=== PATIENT | female | born 1995 | race African-American/Black ===

== ENCOUNTER 2021-09-05 18:50 | Inpatient (IN) | payer MEDICAID ==
[~2021-09-05] VITALS: Ht 162.6 cm; Wt 65.8 kg
[2021-09-05] MEDS: NACL 0.9% 1,000 ML IV SCH (01:40)
[2021-09-05 18:54] VITALS: BP 108/80
--- NOTE | 2021-09-05 19:05 | NUR ---
PATIENT IS HERE FOR CLOGGED RIGGINS.
--- NOTE | 2021-09-05 19:05 | NUR ---
PT IN ROOM 1
--- NOTE | 2021-09-05 19:19 | NUR ---
REPORT RECEIVED FROM ROXANA ALLEN. CONTINUITY OF PT CARE AT THIS TIME.
[2021-09-05 19:24] LABS: HEMATOCRIT 28.9 % (36-48); MEAN CORPUSCULAR HEMOGLOBIN 24 pg (27-31); MEAN CORPUSCULAR HGB CONC 31 g/dL (33-37); MEAN CORPUSCULAR VOLUME 75.6 fL (80-94); PLATELET COUNT (AUTO) 898 K/uL (140-450); RED BLOOD CELL COUNT(AUTO) 3.82 MIL/uL (4.20-5.40); RED CELL DISTRIBUTION WIDTH 21.3 % (11.6-13.7); WHITE BLOOD COUNT (AUTO) 19.5 K/uL (4.8-10.8)
[2021-09-05] MEDS ORDERED: NACL 0.9% 1,000 ML IV ONE ×2 (19:30→21:50)
--- NOTE | 2021-09-05 19:33 | NUR ---
25 YO/F BIBA FROM [facility] FOR INSERTTION OF A RIGGINS CATH. PT PRESENTS NON-VERBAL, AOX0, GCS 9. TRACH TO VENT SETTINGS OF FiO2 24, vt 400, RATE 14, PEEP 5. PT IS TACHYCARDIC IN 140s OTHER VS W/IN NORMAL LIMITS. PT HAS GTUBE PATENT. PT IN GOWN AND CONNECTED TO MONITOR. ERMD AWARE OF PT STATUS. PMH: BRAIN INJURY, TRACH TO VENT, CARDIOMYOPATHY (SEE CHART) ALLERGIES: PENICILLINS, PEANUTS
[2021-09-05 19:53] LABS: ALBUMIN 2.4 g/dL (3.4-5.0); ANION GAP 10.5 (8-16); CARBON DIOXIDE 29.9 mmol/L (21-32); CREATININE 0.5 mg/dL (0.6-1.3); POTASSIUM 3.4 mmol/L (3.5-5.1); TOTAL BILIRUBIN 0.3 mg/dL (0.0-1.0)
[2021-09-05 19:55] LABS: EOSINOPHILS % (MANUAL) 1 % (0-4); LYMPHOCYTES % (MANUAL) 10 % (20-46); MONOCYTES % (MANUAL) 2 % (5-12)
--- NOTE | 2021-09-05 20:13 | NUR ---
# 16 FR Riggins catheter with 10 ml utilizing sterile technique. Immediate return of 2 ml PINK/RED THICK urine noted. Bedside drainage bag placed below level of bladder. UNABLE TO COLLECT SAMPLE AT THIS TIME. Pt tolerated procedure WELL. ASSISTED BY MARY JANE REDMAN. DEE AWARE OF PT RIGGINS INSERTION AND OUTPUT.
[2021-09-05] MEDS ORDERED: cefTRIAXone 1,000 MG VIAL ONE (20:31)
--- NOTE | 2021-09-05 20:36 | NUR ---
AIDA COLLECTED FROM PT NARES AND SENT TO LAB.
--- NOTE | 2021-09-05 20:40 | NUR ---
PER PT CHART PT ALLERGIC TO PENICILLINS AND PEANUTS ERMD AWARE. PER ERMD TO GO AHEAD AND ADMIN ROCEPHIN AND MONITOR FOR ADVERSE REACTIONS.
--- NOTE | 2021-09-05 21:01 | NUR ---
PER ERMD, RIGGINS IRRIGATION NOT NEEDED AT AN IMMEDIATE TIME.
[2021-09-05 22:05] VITALS: BP 114/73
--- NOTE | 2021-09-05 22:07 | NUR ---
1855 PLACED PATIENT ON VENT. PATIENT IS TRACH TO VENT SIZE PORTEX 7. FACILITY STATED SHE WAS ON PRVC MODE RR14 VT 400 PEEP 5 AND 28%. PLACED PATIENT ON THOSE VENT SETTINGS
[2021-09-05] MEDS ORDERED: ACETAMINOPHEN 325 MG TAB PO PRN (23:30)
[2021-09-05] MEDS ORDERED: guaiFENesin DM 200/20 MG-10 ML 10 ML UDC PO PRN (23:30)
[2021-09-05] MEDS ORDERED: ONDANSETRON 4 MG/2 ML VIAL IM/IVP PRN (23:30)
[2021-09-05] MEDS ORDERED: POTASSIUM CHLORIDE 10 MEQ TABER PO PRN (23:30)
[2021-09-05] MEDS ORDERED: DOCUSATE SODIUM 100 MG GELCAP PO PRN (23:30)
[2021-09-05] MEDS ORDERED: ZOLPIDEM 5 MG TAB PO PRN (23:30)
--- NOTE | 2021-09-05 23:48 | NUR ---
PT HR IMPROVED AT THIS TIME TO 120s. OTHER VS W/IN NORMAL LIMITS. NO URINE OUT PUT YET.
[2021-09-06 00:05] LABS: CHOL/HDL RATIO 2.2 (1-4.5); FREE T4 (FREE THYROXINE) 1.31 ng/dL (0.76-1.46); PHOSPHORUS 4.5 mg/dL (2.5-4.9); THYROID STIMULATING HORMONE 3.19 uIU/mL (0.34-3.74)
[2021-09-06 00:06] LABS: PROTHROMBIN TIME 11.3 secs (10.8-13.4)
--- NOTE | 2021-09-06 00:09 | NUR ---
WOUND PHTOTOS ATTATCHED TO CHART.
--- NOTE | 2021-09-06 00:44 | NUR ---
SACRAL WOUND CULTURE TAKEN AND SENT TO LAB.
--- NOTE | 2021-09-06 00:47 | NUR ---
Patient will be admitted to care of DR. JORDAN. Admited to TELE. Will go to room 120B. Belongings list completed. Report to MARY JANE RODRIGUEZ.
--- NOTE | 2021-09-06 01:23 | NUR ---
0110 TRANSFERED PT TO ROOM 120B ON VENT. PLACED PT BACK ON SAME SETTINGS. SEE RT NOTES
--- NOTE | 2021-09-06 01:40 | NUR ---
PATIENT ARRIVED AT THE UNIT 0100, STARTED IVF
[2021-09-06 06:23] LABS: ANION GAP 11.2 (8-16); CREATININE 0.3 mg/dL (0.6-1.3); POTASSIUM 3.2 mmol/L (3.5-5.1)
[2021-09-06 06:30] LABS: BASOPHILS % (AUTO) 0.3 % (0.0-2.0); EOSINOPHILS # (AUTO) 0.2 K/uL (0-0.4); EOSINOPHILS % (AUTO) 1.3 % (0.0-4.0); HEMOGLOBIN 7.9 g/dL (12.0-16.0); LYMPHOCYTES # (AUTO) 1.4 K/uL (2.5-16.5); LYMPHOCYTES % (AUTO) 9.8 % (20.5-51.1); MEAN CORPUSCULAR HEMOGLOBIN 24 pg (27-31); MEAN CORPUSCULAR HGB CONC 31 g/dL (33-37); MEAN CORPUSCULAR VOLUME 76.7 fL (80-94); MONOCYTES # (AUTO) 0.8 K/uL (0.8-1.0); MONOCYTES % (AUTO) 6.1 % (1.7-9.3); NEUTROPHILS # (AUTO) 11.4 K/uL (1.8-7.7); NEUTROPHILS % (AUTO) 82.5 % (42.2-75.2); PLATELET COUNT (AUTO) 705 K/uL (140-450); RED BLOOD CELL COUNT(AUTO) 3.26 MIL/uL (4.20-5.40); WHITE BLOOD COUNT (AUTO) 13.8 K/uL (4.8-10.8)
--- NOTE | 2021-09-06 07:00 | NUR ---
PT ON ACVC 500, RR10, +5, 28%. ALARMS SET AND AUDIBLE, VENT PLUGGED INTO RED OUTLET, WHEELS ARE LOCKED AND AMBU BAG AT BEDSIDE. PT IN NO DISTRESS, RESTING COMFORTABLY.
--- NOTE | 2021-09-06 07:25 | NUR ---
RECEIVED REPORT FROM SAFETY AND SECURITY MANAGER NURSE FOR CONTINUITY OF CARE. PT AWAKE IN BED, NON VERBAL. BREATHING SYMMETRICAL, ON TRACH TO VENT WITH SETTINGS FIO2 28 VT 500 PEEP 5 RATE 10. PT WITH GT, NO RUNNING FEEDING AT THIS TIME. RIGHT HAND 20G WITH NS AT 100CC/HR. ALSO NOTED WITH RIGGINS CATHETER, PER NOC SHIFT NURSE REPORT NO OUTPUT NOTED ON RIGGINS CATHETER DUE TO URINE LEAKED ON DIAPER. F/C WAS PLACED 09/05/21 AT ER. PT ALSO WITH COCCYX PRESSURE ULCER AND RIGHT BUTTOCK WOUND. FLACC O. ALL SAFETY MEASURES IN PLACE.
[2021-09-06 08:00] VITALS: BP 115/68
[2021-09-06] MEDS ORDERED: PANTOPRAZOLE 40 MG TABEC PO SCH (09:00)
[2021-09-06] MEDS: NACL 0.9% 1,000 ML IV SCH ×2 (09:30→19:30)
--- NOTE | 2021-09-06 09:33 | NUR ---
LEFT MESSAGE TO DR JORDAN REGARDING PROTONIX TAB MEDICATION NON CRUSHABLE, IF WE CAN CHANGE TO IVP. AWAITING RESPONSE.
--- NOTE | 2021-09-06 10:27 | NUR ---
PATIENT HAS BEEN SCREENED AND CATEGORIZED HIGH NUTRITION RISK. PATIENT WILL BE SEEN WITHIN 1-2 DAYS OF ADMISSION. SEDRICK [address]ARAY RD
[2021-09-06 12:00] VITALS: BP 103/72
--- NOTE | 2021-09-06 13:01 | NUR ---
FOLLOWED UP REGARDING PROTONIX TAB, NON CRUSHABLE. PT HAS GT, UNABLE TO SWALLOW. CHANGED PROTONIX TO IVP PER MD.
--- NOTE | 2021-09-06 14:11 | NUR ---
MADE AWARE THAT PT RECEIVES FIBERSOURCE FEEDING AT [facility], ORDERED TO CONTINUE. HOSPITAL DOESN'T CARRY FIBERSOURCE FEEDING, DR JORDAN MADE AWARE RD TO COME UP WITH FORMULA. SPOKE WITH SEDRICK DRAFTER GEOPHYSICAL AND MADE AWARE.
--- NOTE | 2021-09-06 14:34 | NUR ---
09/06/21 RD INITIAL ASSESSMENT COMPLETED PLEASE REFER TO NUTRITION ASSESSMENT UNDER CARE ACTIVITY FOR ESTIMATED NUTRITIONAL NEEDS. 1. RECOMMENDED JEVITY 1.2 WITH A GOAL RATE OF 50 ML/HR -FWF: 200 ML Q6H OR PER MD -START AT 20 ML/HR AND INCREASE BY 20 ML Q4H TOLERATED 2. RECOMMEND MIREYA BID PER RD PROTOCOL -WITH MRIEYA BID, PT WILL RECEIVE ~100% OF ESTIMATED NUTRITIONAL NEEDS 3. RD TO FOLLOW-UP 2-3 DAYS, HIGH RISK SEDRICK GARAY RD
--- NOTE | 2021-09-06 15:00 | NUR ---
NOTED RIGGINS CATHETER NO OUTPUT, LEAKING TO THE PAD. DR JORDAN MADE AWARE, CONSULT WITH DR KHAN. DR KHAN MADE AWARE, STATED TO CHANGE CATHETER OR IRRIGATE.
[2021-09-06 16:00] VITALS: BP 97/49
--- NOTE | 2021-09-06 16:17 | NUR ---
STARTED PT ON JEVITY 1.2 AT 20CC/HR, TO INCREASE FEEDING BY 20CC Q4HRS UNTIL GOAL IS REACHED (50CC) WILL MONITOR.
--- NOTE | 2021-09-06 17:20 | NUR ---
RIGGINS CATHETER CHANGED IT WAS STILL LEAKING, NOTED MINIMAL URINE OUTPUT ON THE DRAINAGE BAG. PT WAS JUST CHANGED PRIOR TO RIGGINS CATHETER RE-INSERTION. WILL CONTINUE TO MONITOR.
--- NOTE | 2021-09-06 18:10 | NUR ---
URINE SPECIMEN COLLECTED AND SENT TO LAB. RIGGINS CATHETER INTACT AND PATENT DRAINING CLOUDY YELLOW URINE, NO LEAK NOTED AT THIS TIME. FLACC O.
--- NOTE | 2021-09-06 19:30 | NUR ---
ENDORSED PT TO MANAGER VIDEO NURSE FOR CONTINUITY OF CARE, NO CHANGE IN PT'S CONDITION
[2021-09-06 20:00] VITALS: BP 108/60
[2021-09-06 21:59] LABS: BARBITURATE, URINE NEGATIVE ng/ml (NEG <=200); BENZODIAZEPINE, URINE NEGATIVE ng/mL (NEG <=200); CANNABINOID, URINE NEGATIVE ng/mL (NEG <=50); COCAINE, URINE NEGATIVE ng/mL (NEG <=300); OPIATE, URINE NEGATIVE ng/mL (NEG <=2000); PHENCYCLIDINE SCREEN,URINE NEGATIVE ng/mL (NEG <=25)
[2021-09-07] VITALS: BP 107/61
[2021-09-07 02:28] LABS: APPEARANCE,URINE CLEAR (CLEAR); BILIRUBIN,URINE NEGATIVE (NEGATIVE); BLOOD, URINE TRACE-L (NEGATIVE); COLOR,URINE YELLOW (YELLOW); LEUKOCYTE ESTERASE ,URINE NEGATIVE (NEGATIVE); NITRITE, URINE NEGATIVE (NEGATIVE); UGLUCOSE NEGATIVE (NEGATIVE)
[2021-09-07 02:38] LABS: RBC,URINE 0-5 /HPF (0-5); WBC,URINE 0-5 /HPF (0-5)
[2021-09-07] MEDS ORDERED: MEROPENEM 1,000 MG VIAL IV ONE (04:00)
--- NOTE | 2021-09-07 04:00 | NUR ---
PATIENT IS AWAKE. PATIENT BODY TEMP ELEVATED OF 99.8. COOLING MEASURES APPLIED. BODY TEMP WENT DOWN TO 98.9.
[2021-09-07] MEDS: MEROPENEM 1,000 MG in NACL 0.9% 50 ML IV SCH ×3 (04:23→21:00)
--- NOTE | 2021-09-07 05:00 | NUR ---
BODY TEMP 98.6
[2021-09-07] MEDS: NACL 0.9% 1,000 ML IV SCH ×2 (05:30→13:47)
[2021-09-07 06:46] LABS: BASOPHILS % (AUTO) 0.1 % (0.0-2.0); EOSINOPHILS # (AUTO) 0.2 K/uL (0-0.4); EOSINOPHILS % (AUTO) 1.6 % (0.0-4.0); HEMATOCRIT 23.1 % (36-48); HEMOGLOBIN 7.3 g/dL (12.0-16.0); LYMPHOCYTES # (AUTO) 1.1 K/uL (2.5-16.5); LYMPHOCYTES % (AUTO) 8.3 % (20.5-51.1); MEAN CORPUSCULAR HEMOGLOBIN 24 pg (27-31); MEAN CORPUSCULAR HGB CONC 32 g/dL (33-37); MEAN CORPUSCULAR VOLUME 76.7 fL (80-94); MONOCYTES # (AUTO) 1.2 K/uL (0.8-1.0); NEUTROPHILS # (AUTO) 11.2 K/uL (1.8-7.7); PLATELET COUNT (AUTO) 649 K/uL (140-450); RED BLOOD CELL COUNT(AUTO) 3.01 MIL/uL (4.20-5.40); WHITE BLOOD COUNT (AUTO) 13.9 K/uL (4.8-10.8)
[2021-09-07 06:48] LABS: ANION GAP 11.2 (8-16); CARBON DIOXIDE 25.5 mmol/L (21-32); CREATININE 0.4 mg/dL (0.6-1.3); POTASSIUM 3.7 mmol/L (3.5-5.1)
--- NOTE | 2021-09-07 07:24 | NUR ---
PATIENT IS ON STABLE CONDITION. RIGGINS CATH, IV LINE AND TRACHEOSTOMY VENT ARE INTACT AND PATENT. ENDORSED TO DAY SHIFT NURSE FOR CONTINUITY OF PATIENT CARE.
--- NOTE | 2021-09-07 07:25 | NUR ---
RECEIVED REPORT FROM NIGHTSHIFT NURSE FOR CONTINUITY OF CARE. PLAN OF CARE DISCUSSED. PT IN STABLE CONDITION, CURRENTLY SLEEPING BUT EASILY AROUSED TO SOUND. PT APHASIC, EYES DID NOT TRACK, WITH TRACHE TO VENT. PT BEDBOUND, WITH RIGGINS CATHETER IN PLACE, PATENT TO GRAVITY. G-TUBE RUNNING FEEDING AT 50ML/HR. SKIN CLEAN, DRY, WITH PRESSURE INJURIES ON SACRUM AND RIGHT BUTTOCKS. NO SIGNS OF DISTRESS NOTED. WILL CONTINUE TO MONITOR.
[2021-09-07 08:00] VITALS: BP 99/64
--- NOTE | 2021-09-07 08:00 | NUR ---
RECEIVED PT ON AC/VC 500,RR10,+5,28%. WHEELS LOCKED AND VENT IN PLUGGED INTO RED OUTLET, AMBU BAG AT BEDSIDE. PT WAS RESTING COMFORTABLY
[2021-09-07 08:08] LABS: T4 (THYROXINE) 8.7 ug/dL (4.5-12.0)
[2021-09-07] MEDS: PANTOPRAZOLE 40 MG INJ VIAL IVP SCH (08:39)
--- NOTE | 2021-09-07 09:00 | NUR ---
PT VISUALLY ASSESSED. ORAL CARE PERFORMED, PT TOLERATED WELL. NO RESIDUAL NOTED, G-TUBE PATENT AND FEEDING WAS RESUMED. PT IN STABLE CONDITION, CONTINUOUS PULSE OX READS AT 100%.
--- NOTE | 2021-09-07 11:19 | NUR ---
DC PLANNING: THE PATIENT ADMITTED FROM [facility] WITH AN INITIAL C/O A MALFUNCTIONING RIGGINS CATHETER.. SHE WAS NOTED TO BE IN ST TO THE 140'S, WBC'S 19.5. THE PATIENT HAS PRIOR HOSPITAL ADMISSIONS FOR PERSISTENT SINUS TACH. THE PATIENT IS TRACH TO VENT WITH PEG. ORDERS FOR CONSULTS WITH UROLOGY AND CARDIOLOGY, STARTED ON MEREM AND IVF'S. PATIENT FC WAS REPLACED AND IS DRAINING WITHOUT PROBLEMS. AL SPOKE WITH THE PATIENTS MOTHER BRIEFLY BY PHONE, THE PATIENT HAS BEEN AT [facility] FOR ABOUT A WEEK AND WAS AT [facility] FOR TWO MONTHS. THE MOTHER THEN ENDED THE CALL AND ASKED IF SHE COULD CALL BACK. CM ALSO LEFT A MESSAGE FOR THE PAVER INSTALLER LISTED ON THE PATIENTS FACE SHEET. AL SPOKE WITH NALINI AT [facility], THE PATIENT WAS TRANSFERRED FROM THE [facility] THEY COULDN'T MANAGE HER NEEDS SPECIFICALLY HER WOUND CARE OF MULTIPLE DECUBES. THE PATIENT IS NOT INTERACTIVE AND IS TOTAL CARE. DECISIONS ARE MADE JOINTLY BY THE MOTHER AND [facility]. [facility] WILL ACCEPT HER BACK WHEN SHE IS CLINICALLY STABLE, CM WILL FOLLOW. Addendum: 09/09/21 at 1407 by Augusta Morales CM DC PLANNING: CLINICAL PACKET FAXED TO [facility] INCLUDING WOUND CULTURE RESULTS. PATIENT ACCEPTED TO ROOM 125A, DR PAZ TO FOLLOW. TRANSPORT SET UP WITH [facility] ON WILL CALL, CM WILL FOLLOW. Addendum: 09/12/21 at 1045 by Augusta Morales CM DC PLANNING: PATIENT TO DC BACK TO [facility] TODAY, [facility] TRANSPORT ARRANGED WITH [facility], 1530 LAST [facility]WYER TIME. CM WILL FOLLOW. Addendum: 09/12/21 at 1118 by Augusta Morales CM DC PLANNING: TRANSPORT TIME CHANGED TO 1400 BY CATHERINE. AL WILL FOLLOW. Addendum: 09/12/21 at 1148 by Augusta Morales CM DC PLANNING: CM SPOKE WITH THE PATIENTS MOTHER HUMAIRA BY PHONE, LET HER KNOW THAT THE PATIENT IS RETURNING TO [facility] TODAY. CM WILL FOLLOW.
--- NOTE | 2021-09-07 11:40 | NUR ---
PT VISUALLY ASSESSED AND IN STABLE CONDITION. BED BATH AND LINEN CHANGED PERFORMED BY WAFFLE MACHINE OPERATOR WITH RN AT BEDSIDE. TRACH WAS SUCTIONED AND FEEDING WAS RESUMED ONCE PT WAS CLEANED. PT TOLERATED WELL.
[2021-09-07 12:00] VITALS: BP 109/67
--- NOTE | 2021-09-07 13:04 | NUR ---
BOBBY, WOUND CARE NURSE AT THE BEDSIDE EVALUATING PT. WOUNDS CLEANED AND CHANGED WITH RN. PT IS STABLE.
--- NOTE | 2021-09-07 13:15 | NUR ---
WOUND CARE EVALUATION NOTE: SKIN ASSESSMENT DONE WITH PRIMARY RN ON THIS 25 Y/O ADMITTED WITH INITIAL DX OF F/C DYSFUNCTION. PAST MEDICAL HISTORY OF CARDIOMYOPATHY, ANOXIC BRAIN INJURY, TRACH DEPENDENT, G-TUBE DEPENDENT. ALL ABOVE INFORMATION OBTAIN FROM ADMISSION H&P. PT. ADMITTED WITH PRESSURE INJURIES STAGE 3 TO RIGHT SCAPULAR, LEFT BUTTOCK. 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 PT. SKIN THIN FRAGILE AND EASILY TO TORN. INCONTINENT OF BOWEL, F/C PATENT MODERATE AMOUNT YELLOW URINE OBSERVED, BED BATH PROVIDED, ALL WOUND DRESSING CHANGED, POSITION PT. WITH OFFLOADING AND PT. IS ON KENDRA ISOFLEX ALIZA MATTRESS. POC DISCUSSED WITH PRIMARY RN. DR. JORDAN NOTIFIED POC DISCUSSED POSSIBLE WOUND VAC TX TO SACRALCOCCYX.PENDING ORDER. -TRACH PEROSTOMY SKIN TO RIGHT CHIN, RIGHT NECK HEALED SCAR TISSUE ALHAJI WOUND SKIN INTACT. -PEG ALHAJI-OSTOMY SKIN DRY AND INTACT -MOISTURE ASSOCIATE DERMATITIS GROINS, PERINEUM AND ALHAJI-ANAL, SKIN MOIST, INTACT -SACRALCOCCYX PRESSURE INJURY STAGE 4, MUSCLE OBSERVED WITH 7X10X2 CM UNDERMINING 6 O'CLOCK TO 12 O'CLOCK DIRECTION WITH DEEPEST TO 12 O'CLOCK 5CM, WOUND BED WITH 100% RED GRANULATION TISSUE, MODERATE AMOUNT SEROSANGUINEOUS DRAINAGE, NO ODOR, ALHAJI-WOUND SKIN NON-BLANCHABLE REDNESS MOIST SKIN -LEFT MEDIAL FOOT PRESSURE INJURY UN-STAGEABLE 1X1CM, 100% DRY STABLE BLACK NECROTIC TISSUE -RIGHT MEDIAL FOOT PRESSURE INJURY UN-STAGEABLE 1X1.5CM, 100% DRY STABLE BLACK NECROTIC TISSUE -PRESSURE INJURY STAGE 3 TO RIGHT SCAPULAR SUPERFICIAL DEPTH 19X4CM AREA, MULTIPLE SEGMENTS SUPERFICIAL WOUNDS, WOUND BEDS ARE PINK AND MOIST, NO ODOR, ALHAJI-WOUND SKIN THIN DRY AND EASILY TO TORN RECOMMENDATIONS: -PROTECT RIGHT CHIN AND RIGHT NECK FRESH SCARS WITH FOAM DRESSING QD AND PRN IF SOILING, OFFLOADING NEAK AREA -CLEANSE LEFT BUTTOCK AND RIGHT SCAPULAR WOUNDS WITH NS, PAT DRY, APPLY XEROFORM DRESSING AND COVER WITH FOAM DRESSING QD AND PRN IF SOILING -PAINT LEFT AND RIGHT MEDIAL FEET WITH BETADINE SOLUTION BID AND JOYCELYN, HEEL RAISERS TO BILATERAL HEELS -APPLY HYDRGUARD TO TRUNK OF BODY AND TO GROINS AND ALHAJI-ANAL BID AND JOYCELYN -CLEANSE SACRALCOCCYX WITH WOUND CARE SOLUTION, APPLY THERAHONEY GEL TO WOUND BED, PACK WOUND WITH ONE PIECE KERLIX ROLL, FANFOLD, COVER WITH DRY DRESSING AND SECURE WITH TAPE QD AND PRN IF SOILING, OFFLOAD AREA -POSITIONING: TURN AND REPOSITION PATIENT Q 2H OR SOONER USE PILLOWS TO KEEP BONY PROMINENCES FROM DIRECT CONTACT WITH SURFACES USE REPOSITIONING WEDGES TO PROVIDE 30-DEGREE ANGLE FOR SIDE LYING POSITIONS OFFLOADING OR FOAM DRESSING TO ALL TUBING TO PREVENT MEDICAL DEVICES RELATED PRESSURE INJURY -RE-EVALUATING AND MANAGING INCONTINENCE MONITOR SKIN CONDITION DURING POSITION CHANGE DO NOT MASSAGE REDNESS, BONY PROMINENCES FREQUENT ALHAJI-CARE AND PROVIDE BARRIER CREAMS PRN IF SOILING MOISTURE CONTROL BY OFFER BED LI/URINAL /ABSORBENT PAD TO WICK AND HOLD MOISTURE KEEP SKIN DRY AND PROTECT FROM FRICTION -MANAGE FRICTION/SHEAR/MOBILITY KEEP HOB AT THE LOWEST LEVEL OF ELEVATION NO MORE THAN 30-DEGREE UNLESS OTHERWISE CONTRAINDICATED USE LIFT SHEET OR TRANSFER DEVICE TO MOVE PATIENT AND PREVENT LATERAL SHEER. PROTECT HEELS, ELBOWS BONY PROMINENCES WITH SKIN BERRIES OR FOAM DRESSING IF EXPOSED TO FRICTION OFFLOAD BILATERAL HEELS BY PLACING PILLOWS UNDER CALVES AT ALL TIMES, UNLESS OTHERWISE CONTRAINDICATED -PRESSURE REDISTRIBUTION SURFACE THERAPY KENDRA ISOFLEX ALIZA MATTRESS -NUTRITION: PLEASE FOLLOW RD RECOMMENDATIONS AND OFFER NUTRITION SUPPLEMENTS IF ORDERED.
--- NOTE | 2021-09-07 15:00 | NUR ---
PT VISUALLY ASSESSED, AND IN STABLE CONDITION. NO DISCOMFORT OR DISTRESS NOTED AT THIS TIME. WILL CONTINUE TO MONITOR.
[2021-09-07 16:00] VITALS: BP 133/70
--- NOTE | 2021-09-07 17:00 | NUR ---
PT VISUALLY ASSESSED, AND IN STABLE CONDITION. RT REPORTED THICK SPUTUM WAS SUCTIONED FROM TRACH. PT'S NEW G-TUBE BOTTLE RUNNING WELL WITH NO RESIDUAL NOTED. NO DISTRESS NOTED, WILL CONTINUE TO MONITOR.
[2021-09-07] MEDS: HYDROcodone/APAP 7.5/325 MG 1 TAB PO PRN (18:51)
--- NOTE | 2021-09-07 18:56 | NUR ---
PT WAS GIVEN NORCO FOR PAIN. FLACC SCALE 6/10. PT GRINDING TEETH AND SQUINTING EYES. APHASIC. WILL CONTINUE TO MONITOR.
--- NOTE | 2021-09-07 19:40 | NUR ---
ENDORSED PT TO AIRCRAFT ARMAMENT MECHANIC NURSE FOR CONTINUITY OF CARE. PT IS STABLE. PLAN OF CARE DISCUSSED.
[2021-09-07 20:00] VITALS: BP 126/80
[2021-09-08] VITALS: BP 129/80
--- NOTE | 2021-09-08 00:55 | NUR ---
PATIENT IS AWAKE BUT APHASIC NO TRACKING HAS TRACH TO VENT RATE 10, TV 500 FI02 28 %, PEEP 5. [id number] LUNGS DIMINISH TEMP 98.9 SINUS TACH ON MONITOR HAS G-TUBE JEVTY INFUSING AT 45 HOUR NO RESIDUAL AT 2000, AT 0000 10CC RESIDUAL. HAS WATER FLUSH EVERY SIX HOURS 200CC. HAS F/C DRAINING YELLOW URINE. NO DISTRESS NOTED.
[2021-09-08] MEDS: HYDRAGUARD CREAM TP SCH ×2 (01:00→12:41)
[2021-09-08] MEDS: GAUZE TP SCH ×2 (01:00→12:41)
[2021-09-08] MEDS: NACL 0.9% 1,000 ML IV SCH ×3 (03:28→10:59)
[2021-09-08 04:00] VITALS: BP 120/80
[2021-09-08] MEDS: MEROPENEM 1,000 MG in NACL 0.9% 50 ML IV SCH ×3 (04:52→21:00)
[2021-09-08 07:26] LABS: BASOPHILS % (AUTO) 0.2 % (0.0-2.0); EOSINOPHILS # (AUTO) 0.3 K/uL (0-0.4); EOSINOPHILS % (AUTO) 2.6 % (0.0-4.0); HEMATOCRIT 22.7 % (36-48); HEMOGLOBIN 7.1 g/dL (12.0-16.0); LYMPHOCYTES # (AUTO) 1.1 K/uL (2.5-16.5); LYMPHOCYTES % (AUTO) 9.7 % (20.5-51.1); MEAN CORPUSCULAR HEMOGLOBIN 24 pg (27-31); MEAN CORPUSCULAR HGB CONC 31 g/dL (33-37); MEAN CORPUSCULAR VOLUME 76.1 fL (80-94); MONOCYTES # (AUTO) 1.1 K/uL (0.8-1.0); MONOCYTES % (AUTO) 9.8 % (1.7-9.3); NEUTROPHILS # (AUTO) 8.7 K/uL (1.8-7.7); NEUTROPHILS % (AUTO) 77.7 % (42.2-75.2); PLATELET COUNT (AUTO) 587 K/uL (140-450); RED BLOOD CELL COUNT(AUTO) 2.98 MIL/uL (4.20-5.40); RED CELL DISTRIBUTION WIDTH 20.3 % (11.6-13.7); WHITE BLOOD COUNT (AUTO) 11.2 K/uL (4.8-10.8)
[2021-09-08 07:28] LABS: ANION GAP 9.7 (8-16); CARBON DIOXIDE 27.6 mmol/L (21-32); CREATININE 0.4 mg/dL (0.6-1.3); POTASSIUM 3.3 mmol/L (3.5-5.1)
--- NOTE | 2021-09-08 07:40 | NUR ---
RECEIVED REPORT FROM NIGHTSHIFT NURSE FOR CONTINUITY OF CARE. DISCUSSED PLAN OF CARE. PT IN STABLE CONDITION, AWAKE AND TRACKING WITH EYES. PT APHASIC, TRACH TO VENT WITH O2 SAT WNL. SKIN IS CLEAN, DRY, DRESSINGS ON WOUNDS (SACRAL, SHOULDER, BUTTOCKS) ARE CLEAN AND INTACT. RIGGINS PATENT AND HUNG BY GRAVITY. NO SIGNS OF DISTRESS OR DISCOMFORT NOTED AT THIS TIME. WILL CONTINUE TO MONITOR.
[2021-09-08 08:00] VITALS: BP 130/63
[2021-09-08] MEDS: PANTOPRAZOLE 40 MG INJ VIAL IVP SCH (08:26)
[2021-09-08] MEDS: HYDROcodone/APAP 7.5/325 MG 1 TAB PO PRN ×2 (08:27→18:39)
--- NOTE | 2021-09-08 08:27 | NUR ---
PT WAS GIVEN NORCO FOR PAIN. PT IS GRINDING TEETH AND GRIMACING. PT APPEARS TO BE IN PAIN. ST ON THE MONITOR. WILL CONTINUE TO MONITOR.
--- NOTE | 2021-09-08 10:30 | NUR ---
PT IS STABLE. NO DISTRESS NOTED ON TRACH TO VENT. PT WAS REPOSITIONED. G TUBE IS IN PLACE INFUSING FEEDING. IV IS PATENT AND INTACT. WILL CONTINUE TO MONITOR.
--- NOTE | 2021-09-08 11:00 | NUR ---
DC PLANNING PATIENT IS A 25 YR OLD FEMALE ADMITTED TO [facility] ON 09/05 FOR C/O MALFUNCTIONING RIGGINS CATHETER. MATEO OUTREACHED TO [facility] TO GATHER COLLATERAL INFORMATION. MATEO SPOKE WITH [facility] ADMIN, JOHN. JOHN REPORTED PATIENT HAS BEEN IN THEIR CARE SINCE 08/25/21. PATIENT IS BED BOUND AND IS FULL ASSIST. JOHN REPORTS THAT PATIENT RECEIVES RT. JOHN REPORTS THAT MOM IS ACTIVELY INVOLVED IN CARE AND WORKS CLOSELY WITH PATIENTS REGIONAL WORKER, ROSIO COBIAN TO MAKE DECISIONS FOR CLIENT. DC PLAN IS FOR PATIENT TO RETURN TO [facility] ONCE MEDICALLY STABLE.
[2021-09-08 12:00] VITALS: BP 126/98
--- NOTE | 2021-09-08 12:04 | NUR ---
INFORMED DR. BINGHAM ABOUT PT'S LOW POTASSIUM LEVEL OF 3.3. RECEIVED VERBAL ORDER TO CHANGE PRN 40 MEQ POTASSIUM TO LIQUID SUSPENSION.
[2021-09-08] MEDS: POTASSIUM CHLORIDE 20% 40 MEQ/15 ML UDC GT PRN (12:39)
--- NOTE | 2021-09-08 12:39 | NUR ---
PRN POTASSIUM 40 MEQ GIVEN FOR SERUM POTASSIUM LEVEL OF 3.3. PT IS STABLE AT THIS TIME.
[2021-09-08] MEDS: FOAM DRESSING TP SCH (12:41)
[2021-09-08] MEDS: NON ADHERENT DRESSING TP SCH (12:42)
[2021-09-08] MEDS: THERAHONEY GEL 42.5 GM TP SCH (12:42)
--- NOTE | 2021-09-08 14:40 | NUR ---
09/08/21 RD FOLLOW UP COMPLETED PLEASE REFER TO NUTRITION ASSESSMENT UNDER CARE ACTIVITY FOR ESTIMATED NUTRITIONAL NEEDS. 1. CONTINUE JEVITY 1.2 @ 50 ML/HR TOLERATED -FWF: 200 ML Q6H OR PER MD 2. CONTINUE MIREYA BID PER RD PROTOCOL -WITH MIREYA BID, PT WILL RECEIVE ~100% OF ESTIMATED NUTRITIONAL NEEDS 3. RD TO FOLLOW-UP 2-3 DAYS, HIGH RISK SEDRICK GARAY RD
--- NOTE | 2021-09-08 15:00 | NUR ---
PT IS STABLE. BREATHING IS UNLABORED ON TRACH TO VENT. G TUBE RESIDUAL IS LESS THAN 5 ML. PT TOLERATING WELL. IV IS INFUSING FLUIDS ORDERED. RIGGINS IS PATENT AND INTACT. WILL MONITOR.
[2021-09-08 16:00] VITALS: BP 116/66
--- NOTE | 2021-09-08 18:39 | NUR ---
PT APPEARS TO BE IN PAIN. GRINDING TEETH AND GRIMACING. PT WAS GIVEN NORCO. HR IS 134. WILL CONTINUE TO MONITOR.
--- NOTE | 2021-09-08 19:35 | NUR ---
ENDORSED PT TO SUPERVISOR PAINT NURSE FOR CONTINUITY OF CARE. PT IS STABLE. PLAN OF CARE DISCUSSED.
[2021-09-08 20:00] VITALS: BP 115/74
[2021-09-08] MEDS: METOPROLOL 25 MG TAB PO SCH (21:00)
[2021-09-09] VITALS: BP 117/72
[2021-09-09] MEDS: GAUZE TP SCH ×2 (01:00→13:25)
[2021-09-09] MEDS: HYDRAGUARD CREAM TP SCH ×3 (01:00→21:40)
--- NOTE | 2021-09-09 02:17 | NUR ---
PATIENT NOT ALERT HAS ANOXIC BRAIN INJURY. PATIENT SINUS ON MONITOR 130 HEART RATE. HAS TRACH TO VENT RATE 10, FI02 28%, TV 500, PEEP 5 SAT 100% LUNGS DIMINISH SINUS TACH ON MONITOR. HAS NS INFUSING AT 100 HOUR. JEVITY AT 50 HOUR. NO RESIDUAL AT 2000, AT 000O RESIDUAL 5 CC TEMP 98.2 NO DISTRESS NOTED. PATIENT HAS WOUNDS ON SHOULDERS, BUTTOCKS, AND SACRUM. NO DISTRESS NOTED.
[2021-09-09 04:00] VITALS: BP 118/74
[2021-09-09] MEDS: MEROPENEM 1,000 MG in NACL 0.9% 50 ML IV SCH ×3 (05:00→21:39)
[2021-09-09 06:13] LABS: BASOPHILS % (AUTO) 0.2 % (0.0-2.0); EOSINOPHILS # (AUTO) 0.4 K/uL (0-0.4); EOSINOPHILS % (AUTO) 2.5 % (0.0-4.0); HEMATOCRIT 22.5 % (36-48); HEMOGLOBIN 7.2 g/dL (12.0-16.0); LYMPHOCYTES # (AUTO) 1.7 K/uL (2.5-16.5); MEAN CORPUSCULAR HEMOGLOBIN 25 pg (27-31); MEAN CORPUSCULAR HGB CONC 32 g/dL (33-37); MEAN CORPUSCULAR VOLUME 76.9 fL (80-94); MONOCYTES # (AUTO) 1.4 K/uL (0.8-1.0); MONOCYTES % (AUTO) 8.4 % (1.7-9.3); NEUTROPHILS # (AUTO) 13.5 K/uL (1.8-7.7); NEUTROPHILS % (AUTO) 78.9 % (42.2-75.2); PLATELET COUNT (AUTO) 587 K/uL (140-450); RED BLOOD CELL COUNT(AUTO) 2.93 MIL/uL (4.20-5.40); RED CELL DISTRIBUTION WIDTH 20.7 % (11.6-13.7); WHITE BLOOD COUNT (AUTO) 17.1 K/uL (4.8-10.8)
[2021-09-09 07:01] LABS: ANION GAP 10.5 (8-16); CREATININE 0.4 mg/dL (0.6-1.3); POTASSIUM 3.5 mmol/L (3.5-5.1)
--- NOTE | 2021-09-09 07:35 | NUR ---
RECEIVED REPORT FROM OPERATOR COMMAND SUPPORT SYSTEMS NURSE FOR CONTINUITY OF CARE. PT APHASIC, AWAKE, NON VERBAL. BREATHING SYMMETRICAL ON TRACH TO VENT WITH SETTINGS FIO2 28, PEEP 5, VT 500 RATE 10. FLACC O. PT SINUS TACHYCARDIAC PER REPORT. FLACC O. RIGHT HAND 20G WITH NS AT 100CC/HR. RIGGINS CATHETER INTACT AND PATENT DRAINING YELLOW URINE. GTF OF JEVITY 1.2 AT 50CC/HR WITH WATER FLUSHES OF 200CC Q6HRS. ALL SAFETY MEASURES IN PLACE.
[2021-09-09 08:00] VITALS: BP 112/66
[2021-09-09] MEDS: PANTOPRAZOLE 40 MG INJ VIAL IVP SCH (09:40)
[2021-09-09] MEDS: METOPROLOL 25 MG TAB PO SCH ×2 (09:43→21:40)
--- NOTE | 2021-09-09 09:51 | NUR ---
AM medications given as ordered.
[2021-09-09 12:00] VITALS: BP 93/58
[2021-09-09] MEDS: NACL 0.9% 1,000 ML IV SCH (12:41)
--- NOTE | 2021-09-09 13:20 | NUR ---
PT AWAKE, APHASIC. ON TRACH TO VENT. FLACC O. WOUND DRESSINGS DONE AND CHANGED.
[2021-09-09] MEDS: FOAM DRESSING TP SCH (13:25)
[2021-09-09] MEDS: NON ADHERENT DRESSING TP SCH (13:25)
[2021-09-09] MEDS: THERAHONEY GEL 42.5 GM TP SCH (13:26)
[2021-09-09 16:00] VITALS: BP 114/70
--- NOTE | 2021-09-09 17:15 | NUR ---
PT IN BED. ON TRACH TO VENT. FLACC O. RIGGINS CATHETER INTACT AND PATENT. FREQUENT ROUNDS DONE.
--- NOTE | 2021-09-09 19:35 | NUR ---
ENDORSED PT TO POLE SHAVER HELPER NURSE FOR CONTINUITY OF CARE. NO CHANGE IN CONDITION
[2021-09-09 20:00] VITALS: BP 116/76
[2021-09-10] VITALS: BP 105/57
[2021-09-10] MEDS: GAUZE TP SCH ×2 (01:00→12:16)
[2021-09-10] MEDS: NACL 0.9% 1,000 ML IV SCH ×4 (03:30→23:30)
[2021-09-10 04:00] VITALS: BP 134/76
[2021-09-10] MEDS: MEROPENEM 1,000 MG in NACL 0.9% 50 ML IV SCH ×3 (05:05→22:20)
[2021-09-10 06:25] LABS: HEMATOCRIT 25.4 % (36-48); HEMOGLOBIN 7.8 g/dL (12.0-16.0); MEAN CORPUSCULAR HEMOGLOBIN 23 pg (27-31); MEAN CORPUSCULAR HGB CONC 31 g/dL (33-37); MEAN CORPUSCULAR VOLUME 76.2 fL (80-94); PLATELET COUNT (AUTO) 650 K/uL (140-450); RED BLOOD CELL COUNT(AUTO) 3.33 MIL/uL (4.20-5.40); RED CELL DISTRIBUTION WIDTH 20.8 % (11.6-13.7); WHITE BLOOD COUNT (AUTO) 15.1 K/uL (4.8-10.8)
[2021-09-10 06:48] LABS: ANION GAP 8.6 (8-16); CARBON DIOXIDE 31.5 mmol/L (21-32); CREATININE 0.4 mg/dL (0.6-1.3); POTASSIUM 3.1 mmol/L (3.5-5.1)
--- NOTE | 2021-09-10 07:35 | NUR ---
RECEIVED PATIENT FROM WORKERS COMPENSATION CLAIMS ANALYST NURSE FOR CONTINUITY OF CARE. PT IS STABLE. NO DISTRESS NOTED. IV INTACT AND PATENT INFUSING FLUIDS ORDERED. SKIN IS WARM, DRY, AND NON-INTACT. HAS REINFORCED DRESSING ON SACRAL AND ON RIGHT SHOULDER. C/D/I. RIGGINS CATH IN PLACE. DRAINING YELLOW URINE BY GRAVITY. FLACC 0. PLAN OF CARE DISCUSSED. SAFETY PRECAUTIONS IN PLACE. CALL LIGHT WITHIN REACH. WILL CONTINUE TO MONITOR.
--- NOTE | 2021-09-10 07:55 | NUR ---
pt residual was less than 20mL X4 checks tolerated feeding. Wounds cleaned and dressed. Chavez care was done during shift, no kinks draining clear yellow urine endorsed continuum of care to oncoming nurse
[2021-09-10 08:00] VITALS: BP 107/70
[2021-09-10] MEDS: PANTOPRAZOLE 40 MG INJ VIAL IVP SCH (08:58)
[2021-09-10] MEDS: METOPROLOL 25 MG TAB PO SCH ×2 (08:59→22:21)
--- NOTE | 2021-09-10 09:10 | NUR ---
ALL SCHEDULED MEDS GIVEN. PT IS STABLE. NO DISTRESS NOTED. WILL CONTINUE TO MONITOR.
[2021-09-10] MEDS ORDERED: MORPHINE SULFATE 2 MG/ML SYR IVP PRN (09:40)
[2021-09-10 11:01] LABS: BASOPHILS % (AUTO) 0.5 % (0.0-2.0); EOSINOPHILS % (AUTO) 1.9 % (0.0-4.0); LYMPHOCYTES % (AUTO) 9.9 % (20.5-51.1); MONOCYTES % (AUTO) 8.4 % (1.7-9.3); NEUTROPHILS % (AUTO) 79.3 % (42.2-75.2)
[2021-09-10 11:02] LABS: BASOPHILS # (AUTO) 0.1 K/uL (0.00-0.22); EOSINOPHILS # (AUTO) 0.3 K/uL (0-0.4); LYMPHOCYTES # (AUTO) 1.5 K/uL (2.5-16.5); MONOCYTES # (AUTO) 1.3 K/uL (0.8-1.0)
[2021-09-10 11:04] LABS: LYMPHOCYTES % (MANUAL) 10 % (20-46); MONOCYTES % (MANUAL) 8 % (5-12)
[2021-09-10 11:10] LABS: PLATELET COUNT,MANUAL 650 K/uL (150-450)
[2021-09-10 12:00] VITALS: BP 102/71
[2021-09-10] MEDS: NON ADHERENT DRESSING TP SCH (12:15)
[2021-09-10] MEDS: POTASSIUM CHLORIDE 20% 40 MEQ/15 ML UDC GT PRN (12:15)
[2021-09-10] MEDS: THERAHONEY GEL 42.5 GM TP SCH (12:16)
[2021-09-10] MEDS: HYDRAGUARD CREAM TP SCH (12:16)
[2021-09-10] MEDS: FOAM DRESSING TP SCH (12:17)
--- NOTE | 2021-09-10 12:20 | NUR ---
ALL SCHEDULED MEDS GIVEN. PT IS STABLE. NO DISTRESS NOTED. WILL CONTINUE TO MONITOR.
--- NOTE | 2021-09-10 13:30 | NUR ---
CHANGED PATIENT WOUND DRESSING. KEPT CLEAN AND DRY. PT IS STABLE. WILL CONTINUE TO MONITOR.
[2021-09-10 16:00] VITALS: BP 129/82
--- NOTE | 2021-09-10 16:45 | NUR ---
CHECKED ON PATIENT. PT IS STABLE. NO DISTRESS NOTED. WILL CONTINUE TO MONITOR.
--- NOTE | 2021-09-10 19:35 | NUR ---
ENDORSED TO GOLF CLUB FACER NURSE FOR CONTINUITY OF CARE. PT IS STABLE.
[2021-09-10 20:00] VITALS: BP 102/64
[2021-09-11] VITALS: BP 116/72
[2021-09-11] MEDS: HYDRAGUARD CREAM TP SCH ×2 (01:00→13:57)
[2021-09-11] MEDS: GAUZE TP SCH ×2 (01:00→13:57)
[2021-09-11 04:00] VITALS: BP 96/67
[2021-09-11] MEDS: MEROPENEM 1,000 MG in NACL 0.9% 50 ML IV SCH ×2 (05:11→12:22)
[2021-09-11 05:52] LABS: ANION GAP 8.8 (8-16); BASOPHILS # (AUTO) 0.1 K/uL (0.00-0.22); BASOPHILS % (AUTO) 0.7 % (0.0-2.0); CARBON DIOXIDE 29.7 mmol/L (21-32); CREATININE 0.4 mg/dL (0.6-1.3); EOSINOPHILS # (AUTO) 0.4 K/uL (0-0.4); EOSINOPHILS % (AUTO) 3.4 % (0.0-4.0); HEMATOCRIT 22.6 % (36-48); HEMOGLOBIN 7.2 g/dL (12.0-16.0); LYMPHOCYTES # (AUTO) 1.8 K/uL (2.5-16.5); MEAN CORPUSCULAR HEMOGLOBIN 24 pg (27-31); MEAN CORPUSCULAR HGB CONC 32 g/dL (33-37); MEAN CORPUSCULAR VOLUME 75.3 fL (80-94); MONOCYTES # (AUTO) 1.3 K/uL (0.8-1.0); NEUTROPHILS # (AUTO) 7.3 K/uL (1.8-7.7); NEUTROPHILS % (AUTO) 67.2 % (42.2-75.2); PLATELET COUNT (AUTO) 719 K/uL (140-450); POTASSIUM 3.5 mmol/L (3.5-5.1); RED CELL DISTRIBUTION WIDTH 20.8 % (11.6-13.7); WHITE BLOOD COUNT (AUTO) 10.9 K/uL (4.8-10.8)
--- NOTE | 2021-09-11 07:00 | NUR ---
RECEIVED PT ON ACVC 500, RR10, +5, 24%. WHEELS LOCKED, VENT PLUGGED INTO RED OUTLET AND AMBUBAG AT BEDSIDE. PT RESTING COMFORTABLY, NO DISTRESS NOTED.
[2021-09-11 07:12] LABS: LYMPHOCYTES % (AUTO) 16.9 % (20.5-51.1); MONOCYTES % (AUTO) 11.8 % (1.7-9.3)
--- NOTE | 2021-09-11 07:30 | NUR ---
RECEIVED REPORT FROM MANUFACTURERS SERVICE REPRESENTATIVE NURSE FOR CONTINUITY OF CARE. PT IS AWAKE IN BED, APHASIC. ON TRACH TO VENT WITH SETTINGS FIO2 24, PEEP 5, VT 500, RATE 10. FLACC O. GT INTACT AND PATENT WITH GTF OF JEVITY 1.2 AT 50CC/HR WITH 200CC Q6HRS WATER FLUSHES. RIGGINS CATHETER INTACT AND PATENT DRAINING YELLOW URINE. RIGHT HAND 20G WITH NS AT 100CC/HR. ALL SAFETY MEASURES IN PLACE.
[2021-09-11 08:00] VITALS: BP 112/74
[2021-09-11] MEDS: PANTOPRAZOLE 40 MG INJ VIAL IVP SCH (09:00)
[2021-09-11] MEDS: METOPROLOL 25 MG TAB PO SCH ×3 (09:02→21:00)
--- NOTE | 2021-09-11 09:22 | NUR ---
AM medications admin as ordered. Grady given via G-Tube, for wound healing as ordered.
--- NOTE | 2021-09-11 09:42 | NUR ---
DR BINGHAM MADE AWARE OF HEMOGLOBIN 7.2 AND PLATELET 719, NO ORDERS AT THIS TIME
[2021-09-11 12:00] VITALS: BP 111/73
[2021-09-11] MEDS: NACL 0.9% 1,000 ML IV SCH ×2 (12:21→19:30)
--- NOTE | 2021-09-11 12:44 | NUR ---
WOUND CARE AND DRESSINGS CHANGED ORDERED. TURNED AND REPOSITIONED PTJasmin DOUGLAS O.
[2021-09-11] MEDS: NON ADHERENT DRESSING TP SCH (13:57)
[2021-09-11] MEDS: FOAM DRESSING TP SCH (13:57)
[2021-09-11] MEDS: THERAHONEY GEL 42.5 GM TP SCH (13:58)
[2021-09-11] MEDS ORDERED: TOBRAMYCIN PER PHARMACY MC PRN (16:00)
--- NOTE | 2021-09-11 16:02 | NUR ---
DR WANG (ID) MADE AWARE OF SPUTUM CULTURE RESULT WITH P. AERUGINOSA WITH RESISTANCE TO MEROPENEM. PT CURRENTLY ON MEROPENEM. WITH ORDER TO D/C MEROPENEM AND START ON TOBRAMYCIN PER PHARMACY. ORDER ACKNOWLEDGED
--- NOTE | 2021-09-11 16:52 | NUR ---
09/11/21 RD FOLLOW UP COMPLETED. PLEASE REFER TO NUTRITION ASSESSMENT UNDER CARE ACTIVITY FOR ESTIMATED NUTRITIONAL NEEDS. 1. CONTINUE JEVITY 1.2 @ 50 ML/HR TOLERATED -FWF: 200 ML Q6H OR PER MD 2. CONTINUE MIREYA BID PER RD PROTOCOL -WITH MIREYA BID, PT WILL RECEIVE ~100% OF ESTIMATED NUTRITIONAL NEEDS 3. RD TO FOLLOW-UP 2-3 DAYS, HIGH RISK JUAN BARRIOS RD
[2021-09-11] MEDS: metroNIDAZOLE 500 MG TAB GT SCH (17:29)
[2021-09-11 17:57] VITALS: BP 99/69
--- NOTE | 2021-09-11 19:08 | NUR ---
NOTED PT'S HEART RATE 131-133, LEFT MESSAGE TO DR GODINEZ (KEYBOARD ACTION ASSEMBLER)
[2021-09-11] MEDS ORDERED: METOPROLOL 25 MG TAB GT ONE (19:10)
--- NOTE | 2021-09-11 19:11 | NUR ---
RECEIVED ORDER FROM DR GODINEZ, ORDER ACKNOWLEDGED
--- NOTE | 2021-09-11 19:15 | NUR ---
ENDORSED PT TO FINISH MILL OPERATOR NURSE FOR CONTINUITY OF CARE.
--- NOTE | 2021-09-11 19:16 | NUR ---
RECEIVED REPORT FROM DAY SHIFT NURSE FOR CONTINUITY OF PT CARE.
[2021-09-11 20:00] VITALS: BP_SYST 108; BP_SYST 98; BP_DIAS 55; BP_DIAS 69
--- NOTE | 2021-09-11 20:50 | NUR ---
PATIENT IS WITH B/P-98/55, HR-133. SPOKE TO PEÑA GR MD STATED TO HOLD LOPRESSOR 12,5 MG ORDER AND TO MONITORING PATIENT'S CONDITION, IF B/P CONTINUE TO DROP, SEND PATIENT TO ICU.
[2021-09-12] VITALS: BP 108/69
[2021-09-12] MEDS: HYDRAGUARD CREAM TP SCH ×2 (01:00→13:52)
[2021-09-12] MEDS: GAUZE TP SCH ×2 (01:00→13:52)
[2021-09-12 04:00] VITALS: BP 98/67
[2021-09-12] MEDS: NACL 0.9% 1,000 ML IV SCH (05:30)
[2021-09-12 06:22] LABS: BASOPHILS % (AUTO) 0.4 % (0.0-2.0); EOSINOPHILS # (AUTO) 0.4 K/uL (0-0.4); EOSINOPHILS % (AUTO) 3.7 % (0.0-4.0); HEMOGLOBIN 8.2 g/dL (12.0-16.0); LYMPHOCYTES # (AUTO) 2.3 K/uL (2.5-16.5); LYMPHOCYTES % (AUTO) 21.5 % (20.5-51.1); MEAN CORPUSCULAR HEMOGLOBIN 24 pg (27-31); MEAN CORPUSCULAR HGB CONC 32 g/dL (33-37); MEAN CORPUSCULAR VOLUME 75.1 fL (80-94); MONOCYTES # (AUTO) 1.4 K/uL (0.8-1.0); NEUTROPHILS # (AUTO) 6.6 K/uL (1.8-7.7); NEUTROPHILS % (AUTO) 61.4 % (42.2-75.2); PLATELET COUNT (AUTO) 743 K/uL (140-450); RED BLOOD CELL COUNT(AUTO) 3.46 MIL/uL (4.20-5.40); RED CELL DISTRIBUTION WIDTH 20.9 % (11.6-13.7); WHITE BLOOD COUNT (AUTO) 10.7 K/uL (4.8-10.8)
[2021-09-12 06:44] LABS: ANION GAP 10.5 (8-16); CARBON DIOXIDE 29.1 mmol/L (21-32); CREATININE 0.4 mg/dL (0.6-1.3); POTASSIUM 3.6 mmol/L (3.5-5.1)
--- NOTE | 2021-09-12 06:45 | NUR ---
PATIENT IS ON STABLE CONDITION, NO FACIAL GRIMACING.
--- NOTE | 2021-09-12 07:00 | NUR ---
RECEIVED PT ON ACVC 500, 10, 5, 24%. WHEELS ARE LOCKED AND VENT IS PLUGGED INTO RED OUTLET. AMBU BAG AT BEDSIDE. ALARMS ARE SET AND AUDIBLE.
--- NOTE | 2021-09-12 07:15 | NUR ---
ENDORSED TO DAY SHIFT NURSE FOR CONTINUITY OF PATIENT CARE.
--- NOTE | 2021-09-12 07:15 | NUR ---
RECEIVED REPORT FROM BUSINESS ANALYST [employer] NURSE FOR CONTINUITY OF CARE. PT AWAKE IN BED, APHASIC. ON TRACH TO VENT WITH SETTINGS FIO2 24, PEEP 5, VT 500 RATE 10 BREATHING SYMMETRICAL. FLACC O. GT INTACT AND PATENT WITH JEVITY 1.2 AT 50CC/HR WITH H2O FLUSHES Q6 AT 200CC. RIGGINS CATHETER INTACT AND PATENT DRAINING YELLOW URINE. PER REPORT PT HAS SLIGHT ELEVATION OF TEMP 99.8, LATEST TEMP WAS 99.0. RIGHT HAND 20G WITH NS AT 100CC/HR. ALL SAFETY MEASURES IN PLACE.
[2021-09-12 08:00] VITALS: BP 105/76
[2021-09-12] MEDS ORDERED: DEXTROSE 5% IV SCH (09:00)
[2021-09-12] MEDS ORDERED: TOBRAMYCIN IV SCH (09:00)
[2021-09-12] MEDS: PANTOPRAZOLE 40 MG INJ VIAL IVP SCH (09:09)
[2021-09-12] MEDS: metroNIDAZOLE 500 MG TAB GT SCH ×2 (09:09→12:28)
[2021-09-12] MEDS: METOPROLOL 25 MG TAB PO SCH (09:10)
[2021-09-12] MEDS ORDERED: TOBRAMYCIN IV (09:20)
[2021-09-12] MEDS ORDERED: METR-520 GT (09:20)
--- NOTE | 2021-09-12 09:20 | NUR ---
SCHEDULED AM MEDICATIONS GIVEN ORDERED.
--- NOTE | 2021-09-12 10:15 | NUR ---
[facility]
[2021-09-12 12:00] VITALS: BP 109/68
--- NOTE | 2021-09-12 12:45 | NUR ---
CALLED [facility] AND GAVE REPORT TO MARY JANE HANSEN
[2021-09-12] MEDS: FOAM DRESSING TP SCH (13:52)
[2021-09-12] MEDS: THERAHONEY GEL 42.5 GM TP SCH (13:52)
[2021-09-12] MEDS: NON ADHERENT DRESSING TP SCH (13:52)
--- NOTE | 2021-09-12 14:02 | NUR ---
PT PICKED UP BY [facility] VIA [facility], DISCHARGED TO [facility] WITH BELONGINGS AND PAPERWORKS. PT ON TRACH TO VENT. IV LINE WAS KEPT PT WILL RECEIVE IV ANTIBIOTIC AT [facility].
== END 2021-09-12 14:00 | DRG 720 ==
LOC: MED 18:50 → MTU 22:01
PROVIDERS: ADMIT Family Medicine; ATTEND Family Medicine
PROC: 5A1955Z Respiratory Ventilation, Greater than 96 Consecutive Hours (ICD-10-PCS; principal; 2021-09-06)
DX: A41.9 Sepsis, unspecified organism (principal); G82.50 Quadriplegia, unspecified; G93.41 Metabolic encephalopathy; J18.9 Pneumonia, unspecified organism; E43 Unspecified severe protein-calorie malnutrition; L89.154 Pressure ulcer of sacral region, stage 4; T83.091A Other mechanical complication of indwelling urethral catheter, initial encounter; E87.1 Hypo-osmolality and hyponatremia; G93.1 Anoxic brain damage, not elsewhere classified; D63.8 Anemia in other chronic diseases classified elsewhere; E87.6 Hypokalemia; N39.0 Urinary tract infection, site not specified; D64.9 Anemia, unspecified; B96.20 Unspecified Escherichia coli [E. coli] as the cause of diseases classified elsewhere; Z20.822 Contact with and (suspected) exposure to COVID-19; Z16.12 Extended spectrum beta lactamase (ESBL) resistance; Y65.8 Other specified misadventures during surgical and medical care; Z88.0 Allergy status to penicillin; Z91.010 Allergy to peanuts; Z79.899 Other long term (current) drug therapy; Z68.24 Body mass index [BMI] 24.0-24.9, adult; Q24.0 Dextrocardia; Y92.89 Other specified places as the place of occurrence of the external cause; Z93.0 Tracheostomy status
CPT/HCPCS: 36415; 71045; 76856; 80048; 80053; 80305; 81001; 82150; 83036; 83605; 83690; 83735; 83880; 84100; 84436; 84439; 84443; 84479; 84484; 85025; 85610; 85730; 87040; 87070; 87081; 87086; 87186; 87205; 94002; 94003; 96361; 96365; 99285; C9113; J0696; J2185; J2270; J3260; J7030; J7060; Q0092